=== PATIENT | female | born 1965 | race Caucasian/White ===

== ENCOUNTER 2024-10-24 07:34 | Outpatient (REF) | payer BC, SELFPAY ==
--- OUTSIDE RECORDS SUMMARY | 2024-10-24 07:36 | XMS_ITS | Clinical Summary ---
Author Organization [facility] Address [address] [place] [address] Phone Care Team Providers Care Clipper Operator Name Role Phone Grant Syed MD Primary Care Provider [phone] Family History Medical History Relation Name Comments Breast cancer Mother Relation Name Status Comments Mother Social History Tobacco Use Types Packs/Day Years Used Date Smoking Tobacco: Never Assessed Comments No Sex and Gender Information Value Date Recorded Sex Assigned at Not on file Legal Sex Female 9:45 PM EST Gender Identity Not on file Sexual Orientation Not on file Obstetrics History Para Term AB IAB SAB Ectopic Multiple Livin g Live Births 3 Plan of Treatment Health Maintenance Due Date Last Done Comments DTaP,Tdap,and Td Vaccines (1 - Tdap) 1985 Hepatitis B Vaccines (1 of 3 - 19+ 3-dose series) 1985 Pneumococcal Vaccine: 50+ Years (1 of 1 - PCV) 2016 Zoster Vaccines (1 of 2) 2016 Colorectal Cancer Screening: Colonoscopy 02/21/2022 HIV Screening 02/21/2022 Hepatitis C Screening 02/21/2022 Social Influencers of Health Screening 02/21/2022 COVID-19 Vaccine (3 - season) 2023 05/03/2020, 04/05/2020 Depression Screening 03/22/2024 Influenza Vaccine (#1) 2024 Hypertension/CHF/CAD Annual BMP Blood Test 05/17/2025 05/17/2024 Breast Cancer Screening 01/28/2026 01/29/20 24, 01/04/2023, 12/21/2021, Additional history exists Cervical Cancer Screening: Pap Smear 05/12/2027 05/12/2024 Cholesterol Screening (Lipid Panel) 05/17/2029 05/17/2024 HIB Vaccines Aged Out No longer eligi ble based on patient's age to complete this topic HPV Vaccines Aged Out No longer eligi ble based on patient's age to complete this topic Hepatitis A Vaccines Aged Out No long er eligible based on patient's age to complete this topic IPV Vaccines Aged Out No longer eligi ble based on patient's age to complete this topic MMR Vaccines Aged Out No longer eligi ble based on patient's age to complete this topic Meningococcal ACWY Vaccine Aged Out N o longer eligible based on patient's age to complete this topic Meningococcal B Vaccine Aged Out No l onger eligible based on patient's age to complete this topic RSV Immunization Patients Under 20 months Aged Out No longer eligible based on patient's age to complete this topic Varicella Vaccines Aged Out No longer eligible based on patient's age to complete this topic Procedures Procedure Name Priority Date/Time Associated Diagnosis Comments COMPREHENSIVE METABOLIC PANEL Routine 05/17/2024 8:12 AM EST Familial hypercholesterolemia LIPID PANEL WITH REFLEX TO DIRECT LDL Routine 05/17/2024 8:12 AM EST Familial hypercholesterolemia PAP SMEAR Routine 05/12/2024 12:00 AM EST Encounter for gynecological examination (general) (routine) without abnormal findings MG MAMMO DIGITAL SCREENING W DERRICK BILAT Routine 01/29/2024 7:43 AM EST Encounter for screening mammogram for breast cancer from Last 3 Months or Most Recently Relevant to Health Maintenance Results * (ABNORMAL) Lipid panel with reflex to direct LDL (05/17/2024 8:12 AM EST) Cholesterol 199 0 - 200 mg/dL LAB CHEMISTRY METHOD 05/17/2024 11:01 AM EST [facility] Triglycerides 62 0 - 150 mg/dL LAB CHEMISTRY METHOD 05/17/2024 11:01 AM [facility] HDL 81 >=40 mg/dL LAB CHEMISTRY METHOD 05/17/2024 11:01 AM [facility] LDL Calculated 106(H) 0 - 100 mg/dL LAB CHEMISTRY METHOD 05/17/2024 11:01 AM [facility] VLDL Cholesterol Refugio 12.4 mg/dL LAB CHEMISTRY METHOD 05/17/2024 11:01 AM [facility] Non HDL Chol. (LDL+VLDL) 118 <145 mg/dL LAB CHEMISTRY METHOD 05/17/2024 11:01 AM [facility] Chol/HDL Ratio 2.5 0.0 - 4.4 LAB CHEMISTRY METHOD 05/17/2024 11:01 AM [facility] Blood Venous blood specimen / Unknown Venipuncture / Unknown 05/17/2024 8:12 AM EST 05/17/2024 10:34 AM EST us Grant Syed MD LAB BLOOD ORDERABLES Final Res ult [facility] [address] [place] [address], * (ABNORMAL) Comprehensive metabolic panel (05/17/2024 8:12 AM EST) Sodium 141 133 - 145 mmol/L LAB CHEMISTRY METHOD 05/17/2024 10:56 AM [facility] Potassium 3.3(L) 3.5 - 5.5 mmol/L LAB CHEMISTRY METHOD 05/17/2024 10:56 AM [facility] Chloride 103 96 - 110 mmol/L LAB CHEMISTRY METHOD 05/17/2024 10:56 AM [facility] CO2 31 21 - 32 mmol/L LAB CHEMISTRY METHOD 05/17/2024 10:56 AM [facility] Anion Gap 7 3 - 11 LAB CHEMISTRY METHOD 05/17/2024 10:56 AM [facility] Glucose 101(H) 70 - 100 mg/dL LAB CHEMISTRY METHOD 05/17/2024 10:56 AM [facility] BUN 11 5 - 25 mg/dL LAB CHEMISTRY METHOD 05/17/2024 10:56 AM [facility] Creatinine 0.50 0.50 - 1.10 mg/dL LAB CHEMISTRY METHOD 05/17/2024 10:56 AM [facility] eGFR 110 >=60 mL/min/1. 73m2 LAB CHEMISTRY METHOD 05/17/2024 10:56 AM [facility] Comment:Calculation based on the Chronic Kidney Disease Epidemiology Collaboration (CKD-EPI) equation refit without adjustment for race. BUN/Creatinine Ratio 22.0 LAB CHEMISTRY METHOD 05/17/2024 10:56 AM [facility] Calcium 9.0 8.5 - 10.5 mg/dL LAB CHEMISTRY METHOD 05/17/2024 10:56 AM [facility] AST (SGOT) 14 10 - 42 unit/L LAB CHEMISTRY METHOD 05/17/2024 10:56 AM [facility] ALT (SGPT) 22 10 - 60 unit/L LAB CHEMISTRY METHOD 05/17/2024 10:56 AM [facility] Alkaline Phosphatase 92 42 - 121 unit/L LAB CHEMISTRY METHOD 05/17/2024 10:56 AM [facility] Total Protein 6.9 6.0 - 8.0 g/dL LAB CHEMISTRY METHOD 05/17/2024 10:56 AM [facility] Albumin 3.4 3.2 - 5.0 g/dL LAB CHEMISTRY METHOD 05/17/2024 10:56 AM [facility] Total Bilirubin 0.5 0.0 - 1.4 mg/dL LAB CHEMISTRY METHOD 05/17/2024 10:56 AM EST [facility] Blood Venous blood specimen / Unknown Venipuncture / Unknown 05/17/2024 8:12 AM EST 05/17/2024 10:34 AM EST us Grant Syed MD LAB BLOOD ORDERABLES Final Res ult Performing Organization Address [facility]/ZIP Co de Phone Number [facility] [address] [place] [address], * Pap smear (05/12/2024 12:00 AM EST) Interpretation Negative for intraepithelial lesion or malignancy 05/16/2024 3:47 PM EST [facility] General Categorization Negative 05/16/2024 3:47 PM [facility] Specimen Adequacy Satisfactory for evaluation, endocervical/azul sformation zone component present 05/16/2024 3:47 PM [facility] Pap Methodology Liquid Based Pap Test 05/16/2024 3:47 PM [facility] Disclaimer The Pap test is a screening test which carries an inherent false negative rate. These test results should be correlated with the patient's clinical findings and history. This Pap test was processed using an automated screening system. Technical cytopathology services provided by [facility], at [address] [place] [id number] (CLIA # [id number]/Wilson Fabian MD, Bar Staff.) 05/16/2024 3:47 PM [facility] Console Pap Interpretation Reported 05/16/2024 3:47 PM [facility] Brushing/Spatula Cervix uteri structure / Unknown 05/12/2024 05/15/2024 7:54 AM EST Jo Ann Swanson MD LAB CYTOLOGY ORDERABLES Final Result [facility] [address] [facility] [place] [address], [place] [phone] * MG Mammo Digital Screening w Derrick bilat (01/29/2024 7:43 AM EST) Anatomical Region Laterality Modality Breast Bilateral Mammography 01/31/2024 9:09 AM EST Impressions 01/31/2024 9:10 AM EST Stable mammographic appearance of the breasts. No evidence of malignancy is seen. A negative mammogram in the presence of a clinically suspicious palpable abnormality does not preclude the possibility of malignancy or alter the indications for biopsy. BI-RADS CATEGORY: 2 - BENIGN RECOMMENDATION: Screening bilateral mammogram is recommended in 1 year. Mammo Location: [facility], [address] [place] [address], [address], . -------- FINAL REPORT -------- Dictated By: Aicha Yang Dictated Date: 01/31/2024 09:09 ET Assigned Physician: Aicha Yang Reviewed and Electronically Signed By: Aicha Yang Signed Date: 01/31/2024 09:10 ET Workstation ID: [id number] Transcribed By: Self Edit Transcribed Date: 01/31/2024 09:09 ET Narrative 01/31/2024 9:10 AM EST HISTORY: Screening. Mother had breast carcinoma at age 77. COMPARISON: 01/02/23, 12/20/21, 12/14/20 TECHNIQUE: Bilateral digital breast tomosynthesis was performed in the CC and MLO projections. Computer aided detection with [employer] 3D 3.1 was employed. BREAST DENSITY: B - There are scattered areas of fibroglandular density. FINDINGS: The nodular parenchymal pattern is unchanged. No suspicious masses, grouped microcalcifications, or areas of architectural distortion are seen. The skin and vascularity are unremarkable. Procedure Note Aicha Yang MD - 01/31/2024 HISTORY: Screening. Mother had breast carcinoma at age 77. COMPARISON: 01/02/23, 12/20/21, 12/14/20 TECHNIQUE: Bilateral digital breast tomosynthesis was performed in the CCand MLO projections. Computer aided detection with [employer] 3D 3.1was employed. BREAST DENSITY: B - There are scattered areas of fibroglandular density. FINDINGS: The nodular parenchymal pattern is unchanged. No suspicious masses,grouped microcalcifications, or areas of architectural distortion areseen. The skin and vascularity are unremarkable. IMPRESSION: Stable mammographic appearance of the breasts. No evidence of malignancyis seen. A negative mammogram in the presence of a clinically suspicious palpableabnormality does not preclude the possibility of malignancy or alter theindications for biopsy. BI-RADS CATEGORY: 2 - BENIGN RECOMMENDATION: Screening bilateral mammogram is recommended in 1 year. Mammo Location: [facility], [address] [place] [address], [id number], . -------- FINAL REPORT -------- Dictated By: Aicha Yang Dictated Date: 01/31/2024 09:09 ET Assigned Physician: Aicha Yang Reviewed and Electronically Signed By: Aicha Yang Signed Date: 01/31/2024 09:10 ET Workstation ID: [id number] Transcribed By: Self Edit Transcribed Date: 01/31/2024 09:09 ET Grant Syed MD IMG BI PROCEDURES Final Result from Last 3 Months or Most Recently Relevant to Health Maintenance Insurance [facility] Care Teams Clipper Operator Relationship Specialty Start Date End Date Grant Syed MD [address] PCP - General Internal Medicine 06/02/12
--- OUTSIDE RECORDS SUMMARY | 2024-10-24 07:36 | XMS_ITS | Encounter Summary ---
Author Organization [facility] Address [facility] [address] [address] Phone Care Team Providers Care Roof Slater Name Role Phone Grant Syed MD Primary Care Provider Encounter Details Date Type Department Care Team (Late st Contact Info) Description 05/31/2023 Procedure Pass [facility] Cardiovascular And Interventional Radiology [address] [place] [address] Social History Tobacco Use Types Packs/Day Years Used Date Smoking Tobacco: Former Cigarettes Smokeless Tobacco: Never Alcohol Use Standard Drinks/Week Comments Not Currently 0 (1 standard drink = 0.6 oz pur e alcohol) social/occ Education Answer Date Recorded Are you interested in more education? Not on tigre e 04/02/2023 Are you concerned about learning? Not on file 04/02/2023 No 04/02/2023 No 04/02/2023 Digital Access Answer Date Recorded No 04/02/2023 No 04/02/2023 Reliable internet access at home? Not on file 04/02/2023 Device with a working camera? Not on file Intimate Partner Violence Answer Date R ecorded Denied Basic Needs Not on file 05/31/2023 In the past 12 months have y ou been in a relationship with a person who hurts, threatens, or tries to control you? No 05/31/2023 Worried food would run out Not on file 05/30 In the past 12 months have y ou been in a relationship with a person who hurts, threatens, or tries to control you? No 05/31/2023 Comments Unknown Sex and Gender Information Value Date Recorded Sex Assigned at Not on file Legal Sex Unknown 04/05/2020 11:01 PM EST Gender Identity Not on file Sexual Orientation Not on file documented as of this encounter Plan of Treatment Upcoming Encounters Date Type Department Care Team (Late st Contact Info) Description 03/27/2025 1:00 PM EST Office Visit [facility] [address] [place] [id number] Cindy Patton MD [address] [place] [id number] [email or web address] documented as of this encounter Visit Diagnoses Not on filedocumented in this encounter Care Teams Roof Slater Relationship Specialty Start Date End Date Grant Syed MD [address] [phone] PCP - General Internal Medicine 03/29/23 documented as of this encounter Additional Source Comments The information contained in this document represents components of the legal health record. It is not the complete legal health record.[facility]
== END 2024-10-24 07:35 | disposition home or self-care (01) ==
LOC: HO.HOSX 07:34
PROVIDERS: Visit Provider Orthopaedic Surgery
DX: Z13.89 Encounter for screening for other disorder (principal)

== ENCOUNTER 2024-11-15 08:59 | Outpatient (REF) | payer BC, SELFPAY ==
--- NOTE | ~2024-11-15 | XR_ITS ---
EXAMINATION: XR KNEE 3 VIEWS BILATERAL HISTORY: Bilateral knee pain COMPARISON: There are no prior studies available for comparison. FINDINGS: Six views of the bilateral knees are submitted. Osseous mineralization is normal. There is no fracture or dislocation. On the right, there is moderate tricompartmental osteoarthritis with joint space narrowing and osteophyte formation. On the left, there is moderate to severe osteoarthritis of the medial compartment and mild osteoarthritis of the lateral and patellofemoral compartments. There is a small joint effusion on the right. No left knee joint effusion. XR/XR Knee Shiraz 3V IMPRESSION: Small right knee joint effusion. Osteoarthritis of the bilateral knees as described. Electronically signed by: Junior Bermudez MD 11/15/2024 01:17 PM EDT
--- OUTSIDE RECORDS SUMMARY | 2024-11-16 09:50 | XMS_ITS | Clinical Summary ---
Author Organization [facility] Address [address] [place] [address] Phone Care Team Providers Care Industrial Machinery Mechanic Name Role Phone [place] Syed MD Primary Care Provider [phone] Family History Medical History Relation Name Comments [...] LAB CHEMISTRY METHOD 05/17/2024 11:01 AM EST [facility] Triglycerides 62 0 - 150 [...] MD LAB BLOOD ORDERABLES Final Res ult [facility] [address] [place] [address], * (ABNORMAL) Comprehensive metabolic panel (05/17/2024 8:12 [...] ORDERABLES Final Res ult Performing Organization Address [facility]/ZIP Co de Phone Number [facility] [address] [place] [address], * Pap smear (05/12/2024 12:00 AM EST) Interpretation Negative for intraepithelial lesion or malignancy 05/16/2024 3:47 PM EST [facility] General Categorization Negative 05/16/2024 3:47 PM [facility] Specimen Adequacy Satisfactory for evaluation, endocervical/azul sformation zone component present 05/16/2024 3:47 PM [facility] Pap Methodology Liquid Based Pap Test 05/16/2024 3:47 PM [facility] Disclaimer The Pap test is a screening test which carries an inherent false negative rate. These test results should be correlated with the patient's clinical findings and history. This Pap test was processed using an automated screening system. Technical cytopathology services provided by [facility], at [address] [place] [id number] (CLIA # [id number]/Wilson Fabian MD, Electric Meter Repairer Helper.) 05/16/2024 3:47 PM [facility] Console Pap Interpretation Reported 05/16/2024 3:47 PM [facility] Brushing/Spatula Cervix uteri structure / Unknown 05/12/2024 05/15/2024 7:54 AM EST Jo Ann Swanson MD LAB CYTOLOGY ORDERABLES Final Result [facility] [address] [facility] [address], [place] [phone] * MG Mammo Digital Screening w Derrick [...] year. Mammo Location: [facility], [address] [place] [address], [address], . -------- FINAL REPORT -------- Dictated By: Aihca Yang Dictated Date: 01/31/2024 09:09 ET Assigned Physician: Aicha Yang Reviewed and Electronically Signed By: Aicha Yang Signed Date: 01/31/2024 09:10 ET Workstation ID: [id number] Transcribed By: Self Edit Transcribed Date: 01/31/2024 09:09 ET Narrative 01/31/2024 9:10 AM EST HISTORY: Screening. Mother had breast carcinoma at age 77. COMPARISON: 01/02/23, 12/20/21, 12/14/20 TECHNIQUE: Bilateral digital breast tomosynthesis was performed in the CC and MLO projections. Computer aided detection with Ubimo 3D 3.1 was employed. BREAST DENSITY: B [...] CCand MLO projections. Computer aided detection with WiztangoD CleanEdison 3D 3.1was employed. BREAST DENSITY: B - [...] year. Mammo Location: [facility], [address] [place] [address], [address], . -------- FINAL REPORT -------- Dictated By: Aicha Yang Dictated Date: 01/31/2024 09:09 ET Assigned Physician: Aicha Yang Reviewed and Electronically Signed By: Aicha Yang Signed Date: 01/31/2024 09:10 ET Workstation ID: [id number] Transcribed By: Self Edit Transcribed Date: 01/31/2024 09:09 ET [place] Syed MD IMG BI PROCEDURES Final Result from Last 3 Months or Most Recently Relevant to Health Maintenance Insurance [facility] Care Teams Industrial Machinery Mechanic Relationship Specialty Start Date End Date [place] Syed MD [address] PCP - General Internal Medicine 06/02/12
--- OUTSIDE RECORDS SUMMARY | 2024-11-16 09:50 | XMS_ITS | Encounter Summary ---
Author Organization [facility] Address [facility] [place] [address] [address] Phone Care Team Providers Care Warehouse Analyst Name Role Phone [place] Syed MD Primary Care Provider Encounter Details Date Type Department Care Team (Late st Contact Info) Description 05/31/2023 Procedure Pass [facility] [address] [place] [address] Social History Tobacco Use Types Packs/Day Years [...] 1:00 PM EST Office Visit [facility] [address] [place] [phone] Cindy Patton MD [address] [place] [id number] [email or web address] documented as of this encounter Visit Diagnoses Not on filedocumented in this encounter Care Teams Warehouse Analyst Relationship Specialty Start Date End Date [place] Syed MD [address] [phone] PCP - General Internal Medicine 03/29/23 documented as of this encounter Additional Source Comments The information contained in this document represents components of the legal health record. It is not the complete legal health record.[facility]
--- OUTSIDE RECORDS SUMMARY | 2024-11-16 09:50 | XMS_ITS | Encounter Summary ---
Author Organization [facility] Address [address] [place] [address] Care Team Providers Care Clerical Warehouseman Name Role Phone [place] Syed MD Primary Care Provider [phone] Encounter Details Date Type Department Care Team (Latest Contact Info) Description 05/15/2024 Lab Requisition [facility] - Main Lab 299 [place] [phone] Jo Ann Swanson MD [address] [phone] Encounter for gynecological examination (general) (routine) without [...] intraepithelial lesion or malignancy 05/16/2024 3:47 PM [facility] General Categorization Negative 05/16/2024 [...] cytopathology services provided by [facility], at [address] [place] [address] (CLIA # [id number]/Wilson Fabian MD, Chief Information Officer.) 05/16/2024 3:47 PM [facility] Console Pap Interpretation Reported 05/16/2024 3:47 PM [facility] Brushing/Spatula Cervix uteri structure / Unknown 05/12/2024 05/15/2024 7:54 AM EST us Jo Ann Swanson MD LAB CYTOLOGY ORDERABLES Final Result Performing Organization Address City/State/[facility] Co de Phone Number [facility] [address] [place] [address], documented in this encounter Visit Diagnoses Diagnosis Encounter for gynecological examination (general) (routine) without abnormal findings documented in this encounter Care Teams Clerical Warehouseman Relationship Specialty Start Date End Date [place] Syed MD [address] PCP - General Internal Medicine 06/02/12 documented as of this encounter
--- OUTSIDE RECORDS SUMMARY | 2024-11-16 09:50 | XMS_ITS | Encounter Summary ---
Author Organization [facility] [place] [address] Care Team Providers Care Audit Lead Name Role Phone [place] Syed MD Primary Care Provider [phone] Encounter Details Date Type Department Care Team (Latest Contact Info) Description 05/17/[address] [facility] - Main Lab 299 [facility] [place] [phone] [place] Syed MD [address] [place], [place] Familial hypercholesterolemia Social History Tobacco Use [...] mg/dL LAB CHEMISTRY METHOD 05/17/2024 11:01 AM [facility] Triglycerides 62 0 - 150 mg/dL LAB CHEMISTRY METHOD 05/17/2024 11:01 AM [facility] HDL 81 >=40 mg/dL LAB CHEMISTRY METHOD 05/17/2024 11:01 AM [facility] LDL Calculated 106(H) 0 - 100 mg/dL LAB CHEMISTRY METHOD 05/17/2024 11:01 AM [facility] VLDL Cholesterol Refugio 12.4 mg/dL LAB CHEMISTRY METHOD 05/17/2024 11:01 AM [facility] Non HDL Chol. (LDL+VLDL) 118 <145 mg/dL LAB CHEMISTRY METHOD 05/17/2024 11:01 AM [facility] Chol/HDL Ratio 2.5 0.0 - 4.4 LAB CHEMISTRY METHOD 05/17/2024 11:01 AM [facility] Blood Venous blood specimen / Unknown Venipuncture / Unknown 05/17/2024 8:12 AM EST 05/17/2024 10:34 AM EST [place] Syed MD LAB BLOOD ORDERABLES Final Res ult [facility] [address] [place] [address], * (ABNORMAL) Comprehensive metabolic panel (05/17/2024 8:12 AM EST) Sodium 141 133 - 145 mmol/L LAB CHEMISTRY METHOD 05/17/2024 10:56 AM [facility] Potassium 3.3(L) 3.5 - 5.5 mmol/L LAB CHEMISTRY METHOD 05/17/2024 10:56 AM [facility] Chloride 103 96 - 110 mmol/L LAB CHEMISTRY METHOD 05/17/2024 10:56 AM [facility] CO2 31 21 - 32 mmol/L LAB CHEMISTRY METHOD 05/17/2024 10:56 AM [facility] Anion Gap 7 3 - 11 LAB CHEMISTRY METHOD 05/17/2024 10:56 AM [facility] Glucose 101(H) 70 - 100 mg/dL LAB CHEMISTRY METHOD 05/17/2024 10:56 AM [facility] BUN 11 5 - 25 mg/dL LAB CHEMISTRY METHOD 05/17/2024 10:56 AM [facility] Creatinine 0.50 0.50 - 1.10 mg/dL LAB CHEMISTRY METHOD 05/17/2024 10:56 AM [facility] eGFR 110 >=60 mL/min/1. 73m2 LAB CHEMISTRY METHOD 05/17/2024 10:56 AM [facility] Comment:Calculation based on the Chronic Kidney Disease Epidemiology Collaboration (CKD-EPI) equation refit without adjustment for race. BUN/Creatinine Ratio 22.0 LAB CHEMISTRY METHOD 05/17/2024 10:56 AM [facility] Calcium 9.0 8.5 - 10.5 mg/dL LAB CHEMISTRY METHOD 05/17/2024 10:56 AM [facility] AST (SGOT) 14 10 - 42 unit/L LAB CHEMISTRY METHOD 05/17/2024 10:56 AM [facility] ALT (SGPT) 22 10 - 60 unit/L LAB CHEMISTRY METHOD 05/17/2024 10:56 AM [facility] Alkaline Phosphatase 92 42 - 121 unit/L LAB CHEMISTRY METHOD 05/17/2024 10:56 AM [facility] Total Protein 6.9 6.0 - 8.0 g/dL LAB CHEMISTRY METHOD 05/17/2024 10:56 AM [facility] Albumin 3.4 3.2 - 5.0 g/dL LAB CHEMISTRY METHOD 05/17/2024 10:56 AM [facility] Total Bilirubin 0.5 0.0 - 1.4 mg/dL LAB CHEMISTRY METHOD 05/17/2024 10:56 AM EST [facility] Blood Venous blood specimen / Unknown Venipuncture / Unknown 05/17/2024 8:12 AM EST 05/17/2024 10:34 AM EST us [place] Syed MD LAB BLOOD ORDERABLES Final Res ult [facility] [address] [place] [address], [place] [phone] documented in this encounter Visit Diagnoses Diagnosis Familial hypercholesterolemia documented in this encounter Care Teams Audit Lead Relationship Specialty Start Date End Date Grant Syed MD [address] PCP - General Internal Medicine 06/02/12 documented as of this encounter
== END 2024-11-15 09:00 | disposition home or self-care (01) ==
LOC: HO.HOSX 08:59
PROVIDERS: Visit Provider Orthopaedic Surgery
DX: M17.0 Bilateral primary osteoarthritis of knee (principal); M25.562 Pain in left knee; M25.561 Pain in right knee; Z79.899 Other long term (current) drug therapy
CPT/HCPCS: 73562

== ENCOUNTER 2024-11-15 12:50 | Outpatient (AMB) | payer BC, SELFPAY ==
--- NOTE | 2024-11-15 13:07 | MHC.OFFVIS ---
Vital Signs 11/15/24 13:10 Height 5 ft 6 in Weight 265 lb BMI 42.8 Intake Visit Reasons: [employer]ESSIONAL-B/L knee OA Intake Note: Marisela is a 59 year old female who presents with complaints of progressively worsening bilateral knee pains. She describes her pains as sharp and severe in nature. She did have cortisone injections given into both of her knees earlier this year by another provider. Those injections gave her minimal relief. She has not had a viscosupplementation injection. She has tried Tylenol, anti-inflammatory medicines, physical therapy exercises and a home exercise program. She has failed the last 3 months of conservative treatment. At this point her bilateral knee pains are interfering with her activities of daily living and her ability to sleep well through the night. She wishes to hold off on total knee replacement surgery if at all possible. Allergies Penicillins Allergy (Mild, Verified 11/15/24 13:11) Unknown Medication List - Last Reconciled 11/15/24 by Javed Ross MD chlorthalidone 25 mg PO DAILY methimazole 5 mg PO DAILY propranolol ER 60 mg PO DAILY Physical Exam Vital Signs: BMI result Body Mass Index 42.8 Const Other: Well-nourished well-developed very friendly female awake alert and oriented x3 in no acute distress Extrem Other: Bilateral lower extremity examination shows good capillary refill, no skin lesions noted, normal sensation light touch Bilateral knee examination shows minimal effusions, palpable crepitus with range of motion, pain with range of motion, no instability Results Reviewed Results Reviewed: X-rays of the patient's bilateral knees taken today show moderate to severe joint space narrowing, subchondral sclerosis, no acute bony abnormalities Assessment & Plan Assessment & Plan (1) Osteoarthritis of left knee: Code(s): M17.12 - Unilateral primary osteoarthritis, left knee Category: Medical (2) Osteoarthritis of right knee: Code(s): M17.11 - Unilateral primary osteoarthritis, right knee Category: Medical Plan Ms. Chandler presents with bilateral knee pains due to osteoarthritis. I had a lengthy discussion with the patient regarding the treatment options. She wishes to hold off on surgery if at all possible. I agree with this plan. I will see if the patient's insurance company will cover a viscosupplementation injection, such as Durolane, for both of her knees. I will see her back once the injections are available. Feel free to call me at any time should questions regarding her orthopedic management arise. Thank you very much for asking me to see this very friendly patient. I spent 21 minutes in reviewing the patient's records and imaging studies, seeing the patient and documenting in the medical record. Orders: Orders XR Knee Shiraz 3V Today M25.561 - Pain in right knee, M25.562 - Pain in left knee Coding Level of Care Code New Pt Level 3 (05910) Complex EM visit Add On G2211 Diagnoses Osteoarthritis of left knee M17.12 Osteoarthritis of right knee M17.11
[2024-11-15 13:10] VITALS: BMI 42.8
--- OUTSIDE RECORDS SUMMARY | 2024-11-15 13:17 | XMS_ITS | Clinical Summary ---
Author Organization [facility] Address [address] [place] [address] Phone Care Team Providers Care Rn Pediatric Icu Name Role Phone Grant Syed MD Primary Care Provider [phone] Family History Medical History Relation Name Comments [...] LAB CHEMISTRY METHOD 05/17/2024 11:01 AM EST [facility] Triglycerides 62 0 - 150 mg/dL LAB CHEMISTRY METHOD 05/17/2024 11:01 AM [facility] HDL 81 >=40 mg/dL LAB CHEMISTRY METHOD 05/17/2024 11:01 AM [facility] LDL Calculated 106(H) 0 - 100 mg/dL LAB CHEMISTRY METHOD 05/17/2024 11:01 AM [facility] VLDL Cholesterol Refugio 12.4 mg/dL LAB CHEMISTRY METHOD 05/17/2024 11:01 AM [facility] Non HDL Chol. (LDL+VLDL) 118 <145 mg/dL LAB CHEMISTRY METHOD 05/17/2024 11:01 AM [facility] Chol/HDL Ratio 2.5 0.0 - 4.4 LAB CHEMISTRY METHOD 05/17/2024 11:01 AM [facility] Blood Venous blood specimen / Unknown Venipuncture / Unknown 05/17/2024 8:12 AM EST 05/17/2024 10:34 AM EST us Grant Syed MD LAB BLOOD ORDERABLES Final Res ult [facility] [address] [place] [address], * (ABNORMAL) Comprehensive metabolic panel (05/17/2024 8:12 AM EST) Sodium 141 133 - 145 mmol/L LAB CHEMISTRY METHOD 05/17/2024 10:56 AM [facility] Potassium 3.3(L) 3.5 - 5.5 mmol/L LAB CHEMISTRY METHOD 05/17/2024 10:56 AM [facility] Chloride 103 96 - 110 mmol/L LAB CHEMISTRY METHOD 05/17/2024 10:56 AM [facility] CO2 31 21 - 32 mmol/L LAB CHEMISTRY METHOD 05/17/2024 10:56 AM [facility] Anion Gap 7 3 - 11 LAB CHEMISTRY METHOD 05/17/2024 10:56 AM [facility] Glucose 101(H) 70 - 100 mg/dL LAB CHEMISTRY METHOD 05/17/2024 10:56 AM [facility] BUN 11 5 - 25 mg/dL LAB CHEMISTRY METHOD 05/17/2024 10:56 AM [facility] Creatinine 0.50 0.50 - 1.10 mg/dL LAB CHEMISTRY METHOD 05/17/2024 10:56 AM [facility] eGFR 110 >=60 mL/min/1. 73m2 LAB CHEMISTRY METHOD 05/17/2024 10:56 AM [facility] Comment:Calculation based on the Chronic Kidney Disease Epidemiology Collaboration (CKD-EPI) equation refit without adjustment for race. BUN/Creatinine Ratio 22.0 LAB CHEMISTRY METHOD 05/17/2024 10:56 AM [facility] Calcium 9.0 8.5 - 10.5 mg/dL LAB CHEMISTRY METHOD 05/17/2024 10:56 AM [facility] AST (SGOT) 14 10 - 42 unit/L LAB CHEMISTRY METHOD 05/17/2024 10:56 AM [facility] ALT (SGPT) 22 10 - 60 unit/L LAB CHEMISTRY METHOD 05/17/2024 10:56 AM [facility] Alkaline Phosphatase 92 42 - 121 unit/L LAB CHEMISTRY METHOD 05/17/2024 10:56 AM [facility] Total Protein 6.9 6.0 - 8.0 g/dL LAB CHEMISTRY METHOD 05/17/2024 10:56 AM [facility] Albumin 3.4 3.2 - 5.0 g/dL LAB CHEMISTRY METHOD 05/17/2024 10:56 AM [facility] Total Bilirubin 0.5 0.0 - 1.4 mg/dL LAB CHEMISTRY METHOD 05/17/2024 10:56 AM EST [facility] Blood Venous blood specimen / Unknown Venipuncture / Unknown 05/17/2024 8:12 AM EST 05/17/2024 10:34 AM EST us Grant Syed MD LAB BLOOD ORDERABLES Final Res ult Performing Organization Address [facility]/ZIP Co de Phone Number [facility] [address] [place] [address], * Pap smear (05/12/2024 12:00 AM EST) Interpretation Negative for intraepithelial lesion or malignancy 05/16/2024 3:47 PM EST [facility] General Categorization Negative 05/16/2024 3:47 PM [facility] Specimen Adequacy Satisfactory for evaluation, endocervical/azul sformation zone component present 05/16/2024 3:47 PM [facility] Pap Methodology Liquid Based Pap Test 05/16/2024 3:47 PM [facility] Disclaimer The Pap test is a screening test which carries an inherent false negative rate. These test results should be correlated with the patient's clinical findings and history. This Pap test was processed using an automated screening system. Technical cytopathology services provided by [facility], at [address] [place] [id number] (CLIA # [id number]/Wilson Fabian MD, Lead Javascript Engineer.) 05/16/2024 3:47 PM [facility] Console Pap Interpretation Reported 05/16/2024 3:47 PM [facility] Brushing/Spatula Cervix uteri structure / Unknown 05/12/2024 05/15/2024 7:54 AM EST Jo Ann Swanson MD LAB CYTOLOGY ORDERABLES Final Result [facility] [address] [place] [address], [place] [phone] * MG Mammo Digital Screening w Derrick [...] year. Mammo Location: [facility], [address] [place] [address], [address], . -------- FINAL REPORT -------- Dictated By: Aicha Yang Dictated Date: 01/31/2024 09:09 ET Assigned Physician: Aicha Yang Reviewed and Electronically Signed By: Aicha Yang Signed Date: 01/31/2024 09:10 ET Workstation ID: [id number] Transcribed By: Self Edit Transcribed Date: 01/31/2024 09:09 ET Narrative 01/31/2024 9:10 AM EST HISTORY: Screening. Mother had breast carcinoma at age 77. COMPARISON: 01/02/23, 12/20/21, 12/14/20 TECHNIQUE: Bilateral digital breast tomosynthesis was performed in the CC and MLO projections. Computer aided detection with [employer] 3D 3.1 was employed. BREAST DENSITY: B [...] CCand MLO projections. Computer aided detection with [employer] 3D 3.1was employed. BREAST DENSITY: B - [...] year. Mammo Location: [facility], [address] [place] [address], [address], . -------- FINAL REPORT -------- Dictated By: Aicha Yang Dictated Date: 01/31/2024 09:09 ET Assigned Physician: Aicha Yang Reviewed and Electronically Signed By: Aicha Yang Signed Date: 01/31/2024 09:10 ET Workstation ID: [id number] Transcribed By: Self Edit Transcribed Date: 01/31/2024 09:09 ET Grant Syed MD IMG BI PROCEDURES Final Result from Last 3 Months or Most Recently Relevant to Health Maintenance Insurance [facility] Care Teams Rn Pediatric Icu Relationship Specialty Start Date End Date Grant Syed MD [address] PCP - General Internal Medicine 06/02/12
--- OUTSIDE RECORDS SUMMARY | 2024-11-15 13:17 | XMS_ITS | Encounter Summary ---
Author Organization [facility] [place] [address] Care Team Providers Care Recoater Name Role Phone [place] Syed MD Primary Care Provider [phone] Encounter Details Date Type Department Care Team (Latest Contact Info) Description 05/17/2024 Lab Requisition [facility] - Main Lab 299 [facility] [place] [phone] [place] Syed MD [address] [place], [place] Familial hypercholesterolemia Social History Tobacco Use Types Packs/Day Years Used Date Smoking Tobacco: Never Assessed Comments No Sex and Gender Information Value Date Recorded Sex Assigned at Not on file Legal Sex Female 9:45 PM EST Gender Identity Not on file Sexual Orientation Not on file documented as of this encounter Plan of Treatment Not on file documented as of this encounter Procedures Procedure Name Priority Date/Time Associated Diagnosis Comments LIPID PANEL WITH REFLEX TO DIRECT LDL Routine 05/17/2024 8:12 AM EST Familial hypercholesterolemia COMPREHENSIVE METABOLIC PANEL Routine 05/17/2024 8:12 AM EST Familial hypercholesterolemia documented in this encounter Results * (ABNORMAL) Lipid panel with reflex to direct LDL (05/17/2024 8:12 AM EST) Cholesterol 199 0 - 200 mg/dL LAB CHEMISTRY METHOD 05/17/2024 11:01 AM [facility] Triglycerides 62 0 - 150 mg/dL LAB CHEMISTRY METHOD 05/17/2024 11:01 AM [facility] HDL 81 >=40 mg/dL LAB CHEMISTRY METHOD 05/17/2024 11:01 AM [facility] LDL Calculated 106(H) 0 - 100 mg/dL LAB CHEMISTRY METHOD 05/17/2024 11:01 AM [facility] VLDL Cholesterol Refugio 12.4 mg/dL LAB CHEMISTRY METHOD 05/17/2024 11:01 AM [facility] Non HDL Chol. (LDL+VLDL) 118 <145 mg/dL LAB CHEMISTRY METHOD 05/17/2024 11:01 AM [facility] Chol/HDL Ratio 2.5 0.0 - 4.4 LAB CHEMISTRY METHOD 05/17/2024 11:01 AM [facility] Blood Venous blood specimen / Unknown Venipuncture / Unknown 05/17/2024 8:12 AM EST 05/17/2024 10:34 AM EST [place] Syed MD LAB BLOOD ORDERABLES Final Res ult [facility] [address] [place] [address], * (ABNORMAL) Comprehensive metabolic panel (05/17/2024 8:12 AM EST) Sodium 141 133 - 145 mmol/L LAB CHEMISTRY METHOD 05/17/2024 10:56 AM [facility] Potassium 3.3(L) 3.5 - 5.5 mmol/L LAB CHEMISTRY METHOD 05/17/2024 10:56 AM [facility] Chloride 103 96 - 110 mmol/L LAB CHEMISTRY METHOD 05/17/2024 10:56 AM [facility] CO2 31 21 - 32 mmol/L LAB CHEMISTRY METHOD 05/17/2024 10:56 AM [facility] Anion Gap 7 3 - 11 LAB CHEMISTRY METHOD 05/17/2024 10:56 AM [facility] Glucose 101(H) 70 - 100 mg/dL LAB CHEMISTRY METHOD 05/17/2024 10:56 AM [facility] BUN 11 5 - 25 mg/dL LAB CHEMISTRY METHOD 05/17/2024 10:56 AM [facility] Creatinine 0.50 0.50 - 1.10 mg/dL LAB CHEMISTRY METHOD 05/17/2024 10:56 AM [facility] eGFR 110 >=60 mL/min/1. 73m2 LAB CHEMISTRY METHOD 05/17/2024 10:56 AM [facility] Comment:Calculation based on the Chronic Kidney Disease Epidemiology Collaboration (CKD-EPI) equation refit without adjustment for race. BUN/Creatinine Ratio 22.0 LAB CHEMISTRY METHOD 05/17/2024 10:56 AM [facility] Calcium 9.0 8.5 - 10.5 mg/dL LAB CHEMISTRY METHOD 05/17/2024 10:56 AM [facility] AST (SGOT) 14 10 - 42 unit/L LAB CHEMISTRY METHOD 05/17/2024 10:56 AM [facility] ALT (SGPT) 22 10 - 60 unit/L LAB CHEMISTRY METHOD 05/17/2024 10:56 AM [facility] Alkaline Phosphatase 92 42 - 121 unit/L LAB CHEMISTRY METHOD 05/17/2024 10:56 AM [facility] Total Protein 6.9 6.0 - 8.0 g/dL LAB CHEMISTRY METHOD 05/17/2024 10:56 AM [facility] Albumin 3.4 3.2 - 5.0 g/dL LAB CHEMISTRY METHOD 05/17/2024 10:56 AM [facility] Total Bilirubin 0.5 0.0 - 1.4 mg/dL LAB CHEMISTRY METHOD 05/17/2024 10:56 AM EST [facility] Blood Venous blood specimen / Unknown Venipuncture / Unknown 05/17/2024 8:12 AM EST 05/17/2024 10:34 AM EST us [place] Syed MD LAB BLOOD ORDERABLES Final Res ult [facility] [address] [place] [address], [place] [phone] documented in this encounter Visit Diagnoses Diagnosis Familial hypercholesterolemia documented in this encounter Care Teams Recoater Relationship Specialty Start Date End Date [place] Syed MD [address] PCP - General Internal Medicine 06/02/12 documented as of this encounter
--- OUTSIDE RECORDS SUMMARY | 2024-11-15 13:17 | XMS_ITS | Encounter Summary ---
Author Organization [facility] Address [address] [place] [address] Care Team Providers Care Residential Caregiver Name Role Phone [place] Syed MD Primary Care Provider [phone] Encounter Details Date Type Department Care Team (Latest Contact Info) Description 05/15/2024 Lab Requisition [facility] - Main Lab 299 [place] [phone] Jo Ann Swanson MD [address] [phone] Encounter for gynecological examination (general) (routine) without abnormal findings Social History Tobacco Use Types Packs/Day Years [...] Procedure Name Priority Date/Time Associated Diagnosis Comments PAP SMEAR Routine 05/12/2024 12:00 AM EST Encounter for gynecological examination (general) (routine) without abnormal findings documented in this encounter Results * Pap smear (05/12/2024 12:00 AM EST) Interpretation Negative for intraepithelial lesion or malignancy 05/16/2024 3:47 PM [facility] General Categorization Negative 05/16/2024 3:47 PM [facility] Specimen Adequacy Satisfactory for evaluation, endocervical/azul sformation zone component present 05/16/2024 3:47 PM [facility] Pap Methodology Liquid Based Pap Test 05/16/2024 3:47 PM [facility] Disclaimer The Pap test is a screening test which carries an inherent false negative rate. These test results should be correlated with the patient's clinical findings and history. This Pap test was processed using an automated screening system. Technical cytopathology services provided by [facility], at [address] [place] [address] (CLIA # [id number]/Wilson Fabian MD, Tool And Die Repairer.) 05/16/2024 3:47 PM [facility] Console Pap Interpretation Reported 05/16/2024 3:47 PM [facility] Brushing/Spatula Cervix uteri structure / Unknown 05/12/2024 05/15/2024 7:54 AM EST us Jo Ann Swanson MD LAB CYTOLOGY ORDERABLES Final Result Performing Organization Address City/State/[facility] [[email or web address]] Co de Phone Number [facility] [address] [place] [address], documented in this encounter Visit Diagnoses Diagnosis Encounter for gynecological examination (general) (routine) without abnormal findings documented in this encounter Care Teams Residential Caregiver Relationship Specialty Start Date End Date [place] Syed MD [address] PCP - General Internal Medicine 06/02/12 documented as of this encounter
== END 2024-11-15 13:21 | disposition home or self-care (01) ==
LOC: HO.HOS 12:51
PROVIDERS: PCP Pediatrics; Visit Provider Orthopaedic Surgery
DX: M17.0 Bilateral primary osteoarthritis of knee (principal)
CPT/HCPCS: 99203

== ENCOUNTER → 2024-11-15 12:54 | Outpatient (BNV) | payer BC, SELFPAY | PROVIDERS: Visit Provider Radiology Diagnostic Radiology | DX: M17.0 Bilateral primary osteoarthritis of knee (principal) | CPT/HCPCS: 73562 ==

== ENCOUNTER 2025-02-21 07:38 | Outpatient (AMB) | payer BC, SELFPAY ==
--- OUTSIDE RECORDS SUMMARY | 2025-02-21 07:41 | XMS_ITS | Encounter Summary ---
Author Organization [facility] Address [address] [place] [address] Care Team Providers Care Remote Sensing Program Manager Name Role Phone [place] Syed MD Primary Care Provider [phone] Encounter Details Date Type Department Care Team (Latest Contact Info) Description 05/15/2024 Lab Requisition [facility] - Main Lab [address] [place] [phone] Jo Ann Swanson MD [address] [phone] Encounter for gynecological examination (general) (routine) without [...] intraepithelial lesion or malignancy 05/16/2024 3:47 PM [facility] at 1547 EST General Categorization Negative 05/16/2024 3:47 PM [facility] Specimen Adequacy Satisfactory for evaluation, endocervical/azul sformation zone component present 05/16/2024 3:47 PM [facility] Pap Methodology Liquid Based Pap Test 05/16/2024 3:47 PM [facility] Disclaimer The Pap test is a screening test which carries an inherent false negative rate. These test results should be correlated with the patient's clinical findings and history. This Pap test was processed using an automated screening system. Technical cytopathology services provided by [facility], at [address] [place] [address] (CLIA # [id number]/Wilson Fabian MD, Blender Conveyor Operator.) 05/16/2024 3:47 PM [facility] Console Pap Interpretation Reported 05/16/2024 3:47 PM [facility] Brushing/Spatula Cervix uteri structure / Unknown 05/12/2024 05/15/2024 7:54 AM EST us Jo Ann Swanson MD LAB CYTOLOGY ORDERABLES Final Result Performing Organization Address City/State/[facility] Co de Phone Number [facility] [address] [place] [address], documented in this encounter Visit Diagnoses Diagnosis Encounter for gynecological examination (general) (routine) without abnormal findings documented in this encounter Care Teams Remote Sensing Program Manager Relationship Specialty Start Date End Date [place] Syed MD [address] PCP - General Internal Medicine 06/02/12 documented as of this encounter
--- OUTSIDE RECORDS SUMMARY | 2025-02-21 07:41 | XMS_ITS | Encounter Summary ---
Author Organization [facility] [place] [address] Care Team Providers Care Antique Collector Name Role Phone [place] Syed MD Primary Care Provider [phone] Encounter Details Date Type Department Care Team (Latest Contact Info) Description 05/17/2024 Lab Requisition [facility] - Main Lab 299 [facility] [place] [phone] [place] Syed MD [address] [place], [place] Familial hypercholesterolemia Social History Tobacco Use [...] 05/17/2024 11:01 AM [facility] Triglycerides 62 0 - 150 [...] MD LAB BLOOD ORDERABLES Final Res ult [facility] [address] [place] [address], * (ABNORMAL) Comprehensive metabolic panel (05/17/2024 8:12 [...] LAB CHEMISTRY METHOD 05/17/2024 10:56 AM EST [facility] Blood Venous blood specimen / Unknown Venipuncture / Unknown 05/17/2024 8:12 AM EST 05/17/2024 10:34 AM EST us [place] Syed MD LAB BLOOD ORDERABLES Final Res ult [facility] [address] [place] [address], [place] [phone] documented in this encounter Visit Diagnoses Diagnosis Familial hypercholesterolemia documented in this encounter Care Teams Antique Collector Relationship Specialty Start Date End Date [place] Syed MD [address] PCP - General Internal Medicine 06/02/12 documented as of this encounter
--- OUTSIDE RECORDS SUMMARY | 2025-02-21 07:41 | XMS_ITS | Clinical Summary ---
Author Organization [facility] Address [address] [place] [address] Phone Care Team Providers Care Rn Imcu Name Role Phone Grant Syed MD Primary Care Provider [phone] Encounters Date Type Department Care Team Description 01/29/2025 4:30 PM EST - 01/29/2025 11:59 PM EST Hospital [facility] at [address] [address] Encounter for screening mammogram for breast cancer Discharge Disposition: Home or Self Care from Last 3 Months Family History Medical History Relation Name Comments [...] Health Maintenance Due Date Last Done Comments Colorectal Cancer Screening: Colonoscopy 1966 DTaP,Tdap,and Td Vaccines (1 - Tdap) 1985 Hepatitis B Vaccines (1 of 3 - 19+ 3-dose series) 1985 Pneumococcal Vaccine: 50+ Years (1 of 1 - PCV) 2016 RSV Immunization Adult Patients (1 - Risk 50-74 years 1-dose series) 2016 Zoster Vaccines (1 of 2) 2016 HIV Screening 02/21/2022 Hepatitis C Screening 02/21/2022 Social Influencers of Health Screening 02/21/2022 Depression Screening 03/22/2024 COVID-19 Vaccine (3 - season) 2024 05/03/2020, 04/05/2020 Influenza Vaccine (#1) 2024 Hypertension/CHF/CAD Annual BMP Blood Test 05/17/2025 05/17/2024 Breast Cancer Screening 01/29/2027 01/30/20, 01/29/2024, 01/04/2023, Additional history exists Cervical Cancer Screening: Pap [...] Procedure Name Priority Date/Time Associated Diagnosis Comments MG MAMMO DIGITAL SCREENING W DERRICK BILAT Routine 01/29/2025 4:42 PM EST Encounter for screening mammogram for breast cancer COMPREHENSIVE METABOLIC PANEL Routine 05/17/2024 8:12 AM EST Familial hypercholesterolemia LIPID PANEL WITH REFLEX TO DIRECT LDL Routine 05/17/2024 8:12 AM EST Familial hypercholesterolemia PAP SMEAR Routine 05/12/2024 12:00 AM EST Encounter for gynecological examination (general) (routine) without abnormal findings from Last 3 Months or Most Recently Relevant to Health Maintenance Results * MG Mammo Digital Screening w Derrick bilat (01/29/2025 4:42 PM EST) Anatomical Region Laterality Modality Breast Bilateral Mammography 01/29/2025 4:53 PM EST Impressions 01/29/2025 5:00 PM EST No mammographic evidence of malignancy. No suspicious interval change. A negative mammogram in the presence of a clinically suspicious palpable abnormality does not preclude the possibility of malignancy or alter the indications for biopsy. ASSESSMENT: BI-RADS 2: BENIGN RECOMMENDATION(S): 1: Routine screening mammogram BILATERAL in 1 year. [facility]amm[facility] location[facility] at [address], [address] -------- FINAL REPORT -------- Dictated By: Terrell Nina Dictated Date: 01/29/2025 16:53 ET Assigned Physician: Terrell Nina Reviewed and Electronically Signed By: Terrell Nina Signed Date: 01/29/2025 17:00 ET Workstation ID: [id number] Transcribed By: Self Edit Transcribed Date: 01/29/2025 16:53 ET Narrative 01/29/2025 5:00 PM EST EXAM: SCREENING MAMMOGRAPHY, BILATERAL HISTORY: SCREENING. Mother with history of breast cancer. COMPARISON: 01/29/24, 01/02/23, 12/20/21, 12/14/20 TECHNIQUE: Synthesized CC and MLO projections of each breast. Tomosynthesis of each breast in the CC and MLO projections. ADDITIONAL IMAGING: None Computer-aided detection was employed with the iCAD Mixw[employer] AI 3-D. TISSUE DENSITY: There are scattered areas of fibroglandular density. (BI-RADS category B) FINDINGS: There is bilateral duct ectasia with typically benign features. RIGHT BREAST: No suspicious mass. No suspicious calcification. No distortion. No additional suspicious right breast findings LEFT BREAST: No suspicious mass. No suspicious calcification. No distortion. No additional suspicious left breast findings Procedure Note Terrell Nina MD - 01/29/2025 EXAM: SCREENING MAMMOGRAPHY, BILATERAL HISTORY: SCREENING. Mother with history of breast cancer. COMPARISON: 01/29/24, 01/02/23, 12/20/21, 12/14/20 TECHNIQUE: Synthesized CC and MLO projections of each breast.Tomosynthesis of each breast in the CC and MLO projections. ADDITIONAL IMAGING: None Computer-aided detection was employed with the iCAD [employer]Found AI 3-D. TISSUE DENSITY: There are scattered areas of fibroglandular density.(BI-RADS category B) FINDINGS: There is bilateral duct ectasia with typically benign features. RIGHT BREAST: No suspicious mass. No suspicious calcification. No distortion. Noadditional suspicious right breast findings LEFT BREAST: No suspicious mass. No suspicious calcification. No distortion. Noadditional suspicious left breast findings IMPRESSION: No mammographic evidence of malignancy. No suspicious interval change. A negative mammogram in the presence of a clinically suspicious palpableabnormality does not preclude the possibility of malignancy or alter theindications for biopsy. ASSESSMENT: BI-RADS 2: BENIGN RECOMMENDATION(S): 1: Routine screening mammogram BILATERAL in 1 year. [facility]amm[facility] location: [facility] at [address], [id number] -------- FINAL REPORT -------- Dictated By: Terrell Nina Dictated Date: 01/29/2025 16:53 ET Assigned Physician: Terrell Nina Reviewed and Electronically Signed By: Terrell Nina Signed Date: 01/29/2025 17:00 ET Workstation ID: [id number] Transcribed By: Self Edit Transcribed Date: 01/29/2025 16:53 ET us Self Referral Sppl IMG BI PROCEDURES Final Resul t * (ABNORMAL) Lipid panel with reflex to direct LDL (05/17/2024 8:12 AM EST) Cholesterol 199 0 - 200 mg/dL LAB CHEMISTRY METHOD 05/17/2024 11:01 AM EST [facility] Triglycerides 62 0 - 150 mg/dL LAB CHEMISTRY METHOD 05/17/2024 11:01 AM EST [facility] HDL 81 >=40 mg/dL LAB CHEMISTRY METHOD 05/17/2024 11:01 AM [facility] LDL Calculated 106(H) 0 - 100 mg/dL LAB CHEMISTRY METHOD 05/17/2024 11:01 AM [facility] VLDL Cholesterol Refugio 12.4 mg/dL LAB CHEMISTRY METHOD 05/17/2024 11:01 AM [facility] Non HDL Chol. (LDL+VLDL) 118 <145 mg/dL LAB CHEMISTRY METHOD 05/17/2024 11:01 AM [facility] Chol/HDL Ratio 2.5 0.0 - 4.4 LAB CHEMISTRY METHOD 05/17/2024 11:01 AM [facility] Blood Venous blood specimen / Unknown Venipuncture / Unknown 05/17/2024 8:12 AM EST 05/17/2024 10:34 AM EST us Grant Syed MD LAB BLOOD ORDERABLES Final Res ult [facility] [address] [place] [address], [place] [phone] * (ABNORMAL) Comprehensive metabolic panel (05/17/2024 8:12 AM EST) Sodium 141 133 - 145 mmol/L LAB CHEMISTRY METHOD 05/17/2024 10:56 AM [facility] Potassium 3.3(L) 3.5 - 5.5 mmol/L LAB CHEMISTRY METHOD 05/17/2024 10:56 AM [facility] Chloride 103 96 - 110 mmol/L LAB CHEMISTRY METHOD 05/17/2024 10:56 AM [facility] CO2 31 21 - 32 mmol/L LAB CHEMISTRY METHOD 05/17/2024 10:56 AM [facility] Anion Gap 7 3 - 11 LAB CHEMISTRY METHOD 05/17/2024 10:56 AM [facility] Glucose 101(H) 70 - 100 mg/dL LAB CHEMISTRY METHOD 05/17/2024 10:56 AM [facility] BUN 11 5 - 25 mg/dL LAB CHEMISTRY METHOD 05/17/2024 10:56 AM [facility] Creatinine 0.50 0.50 - 1.10 mg/dL LAB CHEMISTRY METHOD 05/17/2024 10:56 AM [facility] eGFR 110 >=60 mL/min/1. 73m2 LAB CHEMISTRY METHOD 05/17/2024 10:56 AM [facility] Comment:Calculation based on the Chronic Kidney Disease Epidemiology Collaboration (CKD-EPI) equation refit without adjustment for race. BUN/Creatinine Ratio 22.0 LAB CHEMISTRY METHOD 05/17/2024 10:56 AM [facility] Calcium 9.0 8.5 - 10.5 mg/dL LAB CHEMISTRY METHOD 05/17/2024 10:56 AM [facility] AST (SGOT) 14 10 - 42 unit/L LAB CHEMISTRY METHOD 05/17/2024 10:56 AM [facility] ALT (SGPT) 22 10 - 60 unit/L LAB CHEMISTRY METHOD 05/17/2024 10:56 AM [facility] Alkaline Phosphatase 92 42 - 121 unit/L LAB CHEMISTRY METHOD 05/17/2024 10:56 AM [facility] Total Protein 6.9 6.0 - 8.0 g/dL LAB CHEMISTRY METHOD 05/17/2024 10:56 AM [facility] Albumin 3.4 3.2 - 5.0 g/dL LAB CHEMISTRY METHOD 05/17/2024 10:56 AM [facility] Total Bilirubin 0.5 0.0 - 1.4 mg/dL LAB CHEMISTRY METHOD 05/17/2024 10:56 AM [facility] Blood Venous blood specimen / Unknown Venipuncture / Unknown 05/17/2024 8:12 AM EST 05/17/2024 10:34 AM EST Grant Syed MD LAB BLOOD ORDERABLES Final Res ult [facility] [address] [place] [address], [place] [phone] * Pap smear (05/12/2024 12:00 AM EST) Interpretation Negative for intraepithelial lesion or malignancy 05/16/2024 3:47 PM EST [facility] at 1547 EST General Categorization Negative 05/16/2024 3:47 PM [facility] Specimen Adequacy Satisfactory for evaluation, endocervical/azul sformation zone component present 05/16/2024 3:47 PM [facility] Pap Methodology Liquid Based Pap Test 05/16/2024 3:47 PM [facility] Disclaimer The Pap test is a screening test which carries an inherent false negative rate. These test results should be correlated with the patient's clinical findings and history. This Pap test was processed using an automated screening system. Technical cytopathology services provided by [facility], at [address] [place] [id number] (CLIA # [id number]/Wilson Fabian MD, [employer].) 05/16/2024 3:47 PM [facility] Console Pap Interpretation Reported 05/16/2024 3:47 PM [facility] Brushing/Spatula Cervix uteri structure / Unknown 05/12/2024 05/15/2024 7:54 AM EST Jo Ann Swanson MD LAB CYTOLOGY ORDERABLES Final Result [facility] [address] [place] [address], [place] [phone] from Last 3 Months or Most Recently Relevant to Health Maintenance Insurance [facility] Care Teams Rn Imcu Relationship Specialty Start Date End Date Grant Syed MD [address] PCP - General Internal Medicine 06/02/12
--- OUTSIDE RECORDS SUMMARY | 2025-02-21 07:41 | XMS_ITS | Clinical Summary ---
Author Organization [facility] Address [address] [employer] [address] [address] Phone Care Team Providers Care Online Facilitator Name Role Phone Grant Syed MD Primary Care Provider Allergies Active Allergy Reactions Criticality Noted Date Comments Penicillins 04/08/2023 Medications chlorthalidone (HYGROTON) 25 MG tablet Take 1 tablet by mouth daily. 01/23/20 23 Active cholecalciferol (VITAMIN D3) 5,000 unit capsule Take 5,000 Units by mouth daily. Active glucos sul 2KCl/msm/chond/ C/Mn (GLUCOSAMINE CHONDROITIN ORAL)Indication s:move free Take by mouth. Indications: move free Active TURMERIC ORAL Take 2 capsules by mouth. Active multivit-min/ir on/FA/vit K/lut (CENTRUM MINIS WOMEN 50 PLUS ORAL) Take by mouth. Activ e propranoloL (INDERAL LA) 60 mg 24 hr capsule Take 60 mg by mouth daily. Active COLLAGEN MISC by Miscellaneous route. Active methIMAzole (TAPAZOLE) 5 MG tablet Take 1 tablet (5 mg total) by mouth daily. 90 tablet 02/06/20 25 Active methIMAzole (TAPAZOLE) 5 MG tablet Take 1 tablet (5 mg total) by mouth daily. 90 tablet 08/05/19 25 025 Discontin ued(Reord er) Active Problems Problem Noted Date Diagnosed Date Vitamin D deficiency, unspecified 07/18/2024 Assessment & Plan (07/18/2024 10:21 PM EDT): Patient reports low vitamin D level in the 20s last year. She has been taking 5000 units of vitamin D on weekdays and 2000 IU on Saturdays and Sundays. She was interested in rechecking vitamin D level with next labs, ordered. We discussed the importance of adequate calcium intake preferably from diet. Family history of thyroid cancer 06/06/2023 Assessment & Plan (07/18/2024 10:27 PM EDT): Paternal uncle of thyroid cancer in his 40s. Patient is not sure what type of thyroid cancer he had. Assessment & Plan (06/06/2023 5:44 PM EDT): Paternal uncle of thyroid cancer in his 40s. Patient is not sure what type of thyroid cancer he had. Thyroid nodule 06/06/2023 Assessment & Plan (07/18/2024 10:20 PM EDT): Thyroid ultrasound from 04/29/2023 reviewed. Right superior cystic lesion with single septation measuring 1.2 x 1.7 x 1.7 cm, low risk for malignancy. We may repeat ultrasound as clinically indicated. Assessment & Plan (08/19/2023 11:22 PM EDT): Thyroid ultrasound from 04/29/2023 reviewed. Right superior cystic lesion with single septation measuring 1.2 x 1.7 x 1.7 cm, low risk for malignancy. We may repeat ultrasound as clinically indicated. Assessment & Plan (06/06/2023 5:47 PM EDT): Thyroid ultrasound from 04/29/2023 reviewed. Right superior cystic lesion with single septation measuring 1.2 x 1.7 x 1.7 cm, low risk for malignancy. We may repeat ultrasound or as clinically indicated. Neck mass 06/06/2023 Assessment & Plan (06/06/2023 5:49 PM EDT): Palpable left lower medial neck mass measuring 1.3 x 1.9 x 2.5 cm on ultrasound dated 04/29/2023, close proximity to the sternoclavicular joint, complicated cystic process is considered. Patient would like to have this biopsied, will set up FNA at [facility]. Graves' disease 06/01/2023 Assessment & Plan (07/18/2024 10:22 PM EDT): See above. No extrathyroidal manifestations. Assessment & Plan (08/19/2023 11:17 PM EDT): See above. Assessment & Plan (06/06/2023 5:38 PM EDT): See above. Assessment & Plan (06/01/2023 3:36 PM EDT): See above. Hyperthyroidism 04/08/2023 Assessment & Plan (07/18/2024 10:31 PM EDT): Graves' thyrotoxicosis treated with methimazole since 03/2023. Also on propranolol 60 mg daily, Rx by PCP. TSH normalized by 12/24/2023 on Methimazole 10mg daily. Patient has experienced weight gain since normalization of thyroid function, likely due to caloric intake exceeding metabolic needs. Methimazole dose was decreased to 7.5 mg daily from 10 mg daily in 12/2023. TFTs were normal in 02/2024 on this dose. Occasional palpitation for 30 seconds. No sweats or shakes. Interestingly she had cold intolerance by late p.m. with overt thyrotoxicosis in the past what has significantly improved. No further hair loss. Lately having more dry skin and some itching in the back of the neck. Occasional twitching of her eyes right more than left. Reports history of hypokalemia, was on potassium replacement, not recently. -Check thyroid function tests today and adjust methimazole dose as needed. - Also check thyroid stimulating antibody with next labs. If euthyroidism sustained with low-dose methimazole [2.5 to 5 mg methimazole] in the future and TSH receptor antibody cleared we could consider stopping methimazole. - Reviewed symptoms of hypo and hyperthyroidism, patient to call if concerned Assessment & Plan (08/19/2023 11:22 PM EDT): Graves' thyrotoxicosis treated with methimazole since the end of March 2022. Dose was increased to 10 mg daily on 04/26/2023 and to 10 mg twice a day on 05/19/2023 because of resting heart rate over 100 and high blood pressure and also started on metoprolol 60 mg daily. Improved TFTs by early June when we decreased the methimazole dose to 15 mg daily what she takes in a split dose 10 mg in the morning and 5 mg at bedtime consistently. Clinically improved. Follow-up labs are pending from today. Will communicate about labs through [facility]. Assessment & Plan (06/06/2023 5:41 PM EDT): Graves' thyrotoxicosis treated with methimazole 5 mg daily since the end of March 2022. Dose was increased to 10 mg daily on 04/26/2023 because of resting heart rate over 100 and high blood pressure and also started on metoprolol 60 mg daily. Clinically improved. Follow-up labs have not been done since methimazole dose was increased. Plan to repeat TFTs and adjust dose as needed. Will communicate about labs through [facility]. Assessment & Plan (06/01/2023 1:12 PM EDT): Graves' thyrotoxicosis treated with methimazole since the end of March. Dose was increased to 10 mg twice a day on 05/13/2023. Improved thyroid hormone levels but still elevated as of 05/28/2023. TSH remains fully suppressed as expected. Clinically she is doing much better. Remains on 60 mg propranolol with heart rate mostly below 100. Plan to continue methimazole 10 mg twice a day and current propranolol dose. Repeat TFTs in 3 to 4 weeks or earlier if clinically indicated. Follow-up in 2 months. Assessment & Plan (04/15/2023 10:39 AM EST): 57-year-old woman was referred for hyperthyroidism. She was diagnosed with subclinical hyperthyroidism with slightly suppressed TSH of 0.3 with normal thyroid hormone levels in 09/2022 at time of physical. She had an elevated TPO at that time. She noticed more frequent palpitations, rapid heart rate to the 120s at rest the last few months. Repeat TFTs on 03/25/2023 showed overt hyperthyroidism with fully suppressed TSH and elevated free T4. Free T3 was not reported. Clinically is slightly thyrotoxic. She had COVID about a month ago. She denies any recent iodine load. Thyroid is top normal in size without palpable nodule. Patient has family history of thyroid cancer in paternal uncle and MS. We discussed basic thyroid physiology, meaning of TFTs, possible causes of thyrotoxicosis. Reviewed how to differentiate between thyroiditis and hyperthyroidism with 24 hr radioactive iodine uptake. Also reviewed available treatment options including antithyroid drug, radioactive iodine ablation and surgery for hyperthyroidism. Plan to repeat TFTs and check TSH receptor antibody. If the TSH receptor antibodies elevated we have the diagnosis of Graves' disease and patient's choice of treatment would be methimazole. We would schedule a thyroid ultrasound as well. If the TSH receptor antibody is not detected, we will schedule 24-hour radioactive iodine uptake and an iodine I-123 scan. If the radioactive iodine uptake is elevated, will start methimazole. If the uptake is low or normal, would monitor TFTs and consider a beta-vipin for symptomatic treatment of the palpitations if still an issue. If iodine scan is showing cold areas, would schedule the ultrasound. Will communicate about lab results and further plan through the patient portal. 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 We discussed that the immune system can make different types of antibodies against the thyroid which may inhibit or stimulate thyroid function, provoke silent thyroiditis. Encounters Date Type Department Care Team Description 02/05/2025 Refill [facility] [address] [place] [address] [place] [address] Thania Packer [place], [place] Medication Refill (Methimazole) from Last 3 Months Social History Tobacco Use Types Packs/Day Years [...] on file Sexual Orientation Not on file Last Filed Vital Signs Vital Sign Reading Time Taken Comments Blood Pressure 124/76 07/18/2024 11:57 AM EDT Pulse 73 07/18/2024 11:57 AM EDT Temperature 36.2 C (97.1 F) 05/31/2023 7:00 AM EDT Respiratory Rate 16 05/31/2023 7:00 AM EDT Oxygen Saturation 95% 07/18/2024 11: 57 AM EDT Inhaled Oxygen Concentration - - Weight 122.2 kg (269 lb 6.4 oz) 025 11:57 AM EDT Height 166.5 cm (5' 5.55 ) 07/18/2024 1 1:57 AM EDT Body Mass Index 44.08 07/18/2024 11:57 AM EDT Plan of Treatment Upcoming Encounters Date Type Department Care Team (Late st Contact Info) Description 03/27/2025 1:00 PM EST Office Visit [facility] [address] [place] [address] [place] [address] Cindy Patton MD [address] [address] Health Maintenance Due Date Last Done Comments Adult Td,Tdap Booster 1965 DEPRESSION SCREENING 1978 SMOKING Hx and SMOKELESS TOBACCO SCREENING 10/29/1979 HEPATITIS C SCREENING 1984 HIV ONE-TIME SCREENING (18-6 5 YEARS) 1984 COLOGUARD 10/29/2011 COLONOSCOPY 10/29/2011 COLORECTAL CANCER SCREENING 10/29/2011 FIT TEST 10/29/2011 FOBT 10/29/2011 SIGMOIDOSCOPY 10/29/2011 VIRTUAL COLONOSCOPY 10/29/2011 PNEUMOCOCCAL VACCINES (50+ years) (1 of 1 - PCV) 2016 RSV VACCINE (1 - Risk 50-74 years 1-dose series) 2016 ZOSTER VACCINES (1 of 2) 2016 INFLUENZA VACCINE (#1) 2024 COVID-19 VACCINE ( - 2024-2 6 season) 2024 05/03/2020, 04/05/2020 POTASSIUM LEVEL 07/18/2025 07/18/2024 SCREENING FOR DIABETES 07/19/2027 07/18/2024 LIPID PANEL 05/17/2029 05/17/2024 HEPATITIS A VACCINES Aged Out No long er eligible based on patient's age to complete this topic HIB VACCINES Aged Out No longer eligi ble based on patient's age to complete this topic MENINGOCOCCAL VACCINES (ACWY) Aged Out No longer eligible based on patient's age to complete this topic MENINGOCOCCAL VACCINES (B) Aged Out N o longer eligible based on patient's age to complete this topic Medical Devices Not on file Procedures Procedure Name Priority Date/Time Associated Diagnosis Comments RENAL PANEL Routine 07/18/2024 12:56 PM EDT Graves' disease from Last 3 Months or Most Recently Relevant to Health Maintenance Results * Renal panel (07/18/2024 12:56 PM EDT) SODIUM 138 133 - 146 mmol/L [facility] POTASSIUM 3.7 3.3 - 5.1 mmol/L [facility] CHLORIDE 97 96 - 108 mmol/L [facility] CO2 31 21 - 35 mmol/L [facility] GLUCOSE 93 70 - 99 mg/dL [facility] BUN 14 6 - 19 mg/dL [facility] CREATININE 0.50 0.5 - 1.5 mg/dL [facility] CALCIUM 9.3 8.4 - 10.3 mg/dL [facility] PHOSPHORUS 3.8 2.7 - 4.5 mg/dL [facility] ALBUMIN 4.0 3.9 - 4.8 g/dL [facility] EGFR eGFR was not calculated because the gender of this patient was either unknown or reported as non-binary at the time of specimen collection. The CKD-EPI refit equation eGFR calculation for male and female patients can be found at: https://www.kid tootie.org/kimmie gale/kdoqi/gf r_calculator. >59 mL/min/1. 73m2 [facility] ANION GAP 14 10 - 20 mmol/L [facility] Blood 07/18/2024 12:5 6 PM EDT 07/18/2024 1:03 PM EDT us Cindy Patton MD LAB BLOOD BKR ORDERABLES Final Result Performing Organization Address City/State/[facility] Co de Phone Number [address] [address] from Last 3 Months or Most Recently Relevant to Health Maintenance Insurance [employer] ([employer] NET[employer] NETWORK HMO [employer] NETWORK HMO [employer] NETWORK HMO [facility] NETWORK HMO Care Teams Online Facilitator Relationship Specialty Start Date End Date Grant Syed MD [address] [id number] PCP - General Internal Medicine 03/29/23 Additional Source Comments The information contained in this document represents components of the legal health record. It is not the complete legal health record.[facility]
--- OUTSIDE RECORDS SUMMARY | 2025-02-21 07:41 | XMS_ITS | Encounter Summary ---
Author Organization [facility] Address [facility] [employer] [address] [address] Phone Care Team Providers Care Senior Director Insight Name Role Phone Grant Syed MD Primary Care Provider Encounter Details Date Type Department Care Team (Late st Contact Info) Description 05/31/2023 Procedure Pass [facility] Cardiovascular And Interventional Radiology [address] [place] [address] Social History Tobacco Use Types Packs/Day Years [...] 1:00 PM EST Office Visit [facility] [address] [place] [address] Cindy Patton MD [address] [place] [phone] [email or web address] documented as of this encounter Visit Diagnoses Not on filedocumented in this encounter Care Teams Senior Director Insight Relationship Specialty Start Date End Date Grant Syed MD [address] [phone] PCP - General Internal Medicine 03/29/23 documented as of this encounter Additional Source Comments The information contained in this document represents components of the legal health record. It is not the complete legal health record.[facility]
--- NOTE | 2025-02-21 08:01 | A.OFFVIS_ITS ---
Vital Signs 02/21/25 08:03 Height 5 ft 6 in Weight 265 lb BMI 42.8 Intake Visit Reasons: OV-Bilat knee pain s/p fall 01/19/25 Intake Note: Marisela is a 59 year old female who presents with complaints of progressively worsening bilateral knee pains. She describes her pains as sharp and severe in nature. She did have cortisone injections given into both of her knees earlier this year by another provider. Those injections gave her minimal relief. She has not had a viscosupplementation injection. She has tried Tylenol, anti- inflammatory medicines, physical therapy exercises and a home exercise program. She has failed the last 3 months of conservative treatment. At this point her bilateral knee pains are interfering with her activities of daily living and her ability to sleep well through the night. She wishes to hold off on total knee replacement surgery if at all possible. The patient states that she did have a recent fall. She had significant bruising over her right knee. She had x-rays which showed no acute bony abnormalities. She was told that viscosupplementation injections were not approved by her insurance company. Allergies Penicillins Allergy (Mild, Verified 02/21/25 08:03) Unknown Medication List - Last Reconciled 02/21/25 by Javed Ross MD chlorthalidone 25 mg PO DAILY methimazole 5 mg PO DAILY propranolol ER 60 mg PO DAILY [facility] Medical History (Updated 02/21/25 @ 08:03 by MAGO Chicas) Bilateral knee pain Social History (Updated 02/21/25 @ 08:03 by MAGO Chicas) Alcohol intake: never Patient Tobacco Use Status: Never used Tobacco Current occupational status: employed Physical Exam Vital Signs: BMI result Body Mass Index 42.8 Extrem Other: Bilateral knee examination shows minimal effusions, palpable crepitus with range of motion, pain with range of motion, no instability Results Reviewed Results Reviewed: X-rays of the patient's bilateral knees show moderate to severe joint space narrowing, subchondral sclerosis, no acute bony abnormalities Assessment & Plan Assessment & Plan (1) Osteoarthritis of left knee: Code(s): M17.12 - Unilateral primary osteoarthritis, left knee Category: Medical (2) Osteoarthritis of right knee: Code(s): M17.11 - Unilateral primary osteoarthritis, right knee Category: Medical Plan Ms. Chandler presents with bilateral knee pains due to osteoarthritis. Per the eric camacho's request, I will get her a danielle davis for viscosupplementation injections. I will contact her with that information once available. She will continue with her activity modifications in the meantime. Feel free to call me at any time should questions regarding her orthopedic management arise. I spent 22 minutes in reviewing the patient's records and imaging studies, seeing the patient and documenting in the medical record. Coding Level of Care Code Est Pt Level 3 (26611) Complex visit Add On G2211 Diagnoses Osteoarthritis of left knee M17.12 Osteoarthritis of right knee M17.11
[2025-02-21 08:03] VITALS: BMI 42.8
== END 2025-02-21 08:12 | disposition home or self-care (01) ==
LOC: HO.HOS 07:39
PROVIDERS: Visit Provider Orthopaedic Surgery
DX: M17.0 Bilateral primary osteoarthritis of knee (principal)
CPT/HCPCS: 99213